=== PATIENT | male | born 1970 | race Caucasian/White ===

== ENCOUNTER 2018-07-10 08:20 | Emergency (ER) | payer BC, OTHER ==
[~2018-07-10 08:20] MED LIST: AZIT500T47 PO; CLON-303 *; CODE118S5 PO; DIA5 PO; HCTZ25 PO; IBU600 PO; IBUP-136 PO; KET10 PO; LID5T TOP; LOR5/325 PO; LOR7.5/325 PO; PAN40 PO; PER PO; PRO25 PO; ROBC PO; VENL75CA58 PO; WARF-12 PO; ZIPR60CA7 PO; [UNRECOGNIZED DRUG - CODE] IJ
[2018-07-10] MEDS ORDERED: NS(*) 0.9% 1000 ML BAG 1,000 ML IV ONE (08:23)
--- NOTE | 2018-07-10 08:36 | ER Report ---
History and Physical Time Seen By MD: 08:36 Hx. of Stated Complaint: PATIENT REPORTS LEFT SIDED CHEST PAIN THAT HE HAS BEEN DEALING WITH SINCE FEBRUARY. THIS MORNING HE BECAME NAUSEATED AND SHORT OF BREATH HPI/ROS 48-year-old male with no significant past medical history who presents to the emergency department with worsening stuttering chest pain for the past 2-3 months. The patient works as a rancher, and is normally very active throughout the day. He does not smoke. His states that for the past 2 weekend his ches t pain has become more frequent such that on the weekends he is not active at all. He does not recall what makes the pain better or worse. He does sometimes have the pain at rest. He denies any trauma. He has not taken anything for the pain. He does not take any medications at all. He denies shortness of breath. The pain is in his left lower chest and does not radiate. Allergies: Coded Allergies: No Known Drug Allergies (Verified , 02/27/15) Home Meds Reported Medications Ibuprofen (IBUPROFEN) 200 Mg Capsule, 2 CAP PO Q6H PRN for pain, CAPSULE 02/27/15 Reviewed Nurses Notes: Yes Old Medical Records Reviewed: Yes Hx Smoking: No Smoking Status: Never Smoker Exposure to Second Hand Smoke?: No Hx Substance Use Disorder: No Hx Alcohol Use: Yes (RARE) Constitutional Vital Sign - Last 24 Hours 07/10/18 07/10/18 07/10/18 07/10/18 08:20 08:23 08:25 08:26 Pulse ??? 63 Resp 20 B/P (MAP) 129/111 (117) 128/92 128/92 (104) Pulse Ox 98 O2 Delivery Room Air 07/10/18 07/10/18 07/10/18 07/10/18 08:40 08:50 09:00 09:20 Pulse 72 68 Resp 60 10 B/P (MAP) 122/94 (103) 115/87 (96) 123/95 (104) Pulse Ox 94 07/10/18 07/10/18 07/10/18 07/10/18 09:40 09:50 09:55 10:00 Pulse 70 68 Resp 18 16 B/P (MAP) 120/93 (102) 115/92 (100) 07/10/18 07/10/18 07/10/18 07/10/18 10:20 10:25 10:40 10:55 Pulse 64 57 Resp 19 0 B/P (MAP) 107/86 (93) 123/77 (92) 07/10/18 11:00 B/P (MAP) 102/90 (94) Physical Exam General Appearance: The patient is alert, has no immediate need for airway protection and no current signs of toxicity. Eyes: Pupils equal and round no injection. Respiratory: Chest is mildly TTP at the left lower chest, lungs are clear to auscultation. Cardiac: regular rate and rhythm Gastrointestinal: Abdomen is soft and non tender, no masses, bowel sounds norm al. Musculoskeletal: See chest exam Extremities have full range of motion and are non tender. Skin: No rashes or lesions. DIFFERENTIAL DIAGNOSIS: After history and physical exam differential diagnosis was considered for chest pain including but not limited to myocardial ischemia, pericarditis pulmonary embolus, chest wall pain, pleural inflammation and pulmonary infectious causes. Medical Decision Making Data Points Result Diagram: 07/10/18 0830 07/10/18 0830 Laboratory Hematology Test 07/10/18 08:30 07/10/18 11:52 Red Blood Count 5.68 M/uL (4.00-5.60) Mean Corpuscular Volume 87.0 fL (80.0-96.0) Mean Corpuscular Hemoglobin 30.5 pg (26.0-33.0) Mean Corpuscular Hemoglobin Concent 35.1 g/dL (32.0-36.0) Red Cell Distribution Width 12.9 % (11.5-14.5) Mean Platelet Volume 8.2 fL (7.2-11.1) Neutrophils (%) (Auto) 68.7 % (39.4-72.5) Lymphocytes (%) (Auto) 21.4 % (17.6-49.6) Monocytes (%) (Auto) 6.2 % (4.1-12.4) Eosinophils (%) (Auto) 3.1 % (0.4-6.7) Basophils (%) (Auto) 0.6 % (0.3-1.4) Nucleated RBC Relative Count (auto) 0.1 /100WBC Neutrophils # (Auto) 4.8 K/uL (2.0-7.4) Lymphocytes # (Auto) 1.5 K/uL (1.3-3.6) Monocytes # (Auto) 0.4 K/uL (0.3-1.0) Eosinophils # (Auto) 0.2 K/uL (0.0-0.5) Basophils # (Auto) 0.0 K/uL (0.0-0.1) Nucleated RBC Absolute Count (auto) 0.01 K/uL Sodium Level 139 mmol/L (137-145) Potassium Level 4.2 mmol/L (3.5-5.0) Chloride Level 100 mmol/L (98-107) Carbon Dioxide Level 28 mmol/L (22-30) Blood Urea Nitrogen 17 mg/dl (9-21) Creatinine 1.00 mg/dl (0.66-1.25) Glomerular Filtration Rate Calc > 60.0 Random Glucose 103 mg/dl (75-110) Calcium Level 9.1 mg/dl (8.4-10.2) Total Bilirubin 0.8 mg/dl (0.2-1.3) Aspartate Amino Transf (AST/SGOT) 56 U/L (0-35) Alanine Aminotransferase (ALT/SGPT) 112 U/L (0-56) Alkaline Phosphatase 81 U/L (0-126) Total Protein 7.4 g/dl (6.3-8.2) Albumin 4.3 g/dl (3.5-5.0) Troponin I < 0.012 ng/ml Chemistry Test 07/10/18 08:30 07/10/18 11:52 White Blood Count 7.1 k/uL (4.5-11.0) Red Blood Count 5.68 M/uL (4.00-5.60) Hemoglobin 17.4 g/dL (14.0-18.0) Hematocrit 49.5 % (42.0-52.0) Mean Corpuscular Volume 87.0 fL (80.0-96.0) Mean Corpuscular Hemoglobin 30.5 pg (26.0-33.0) Mean Corpuscular Hemoglobin Concent 35.1 g/dL (32.0-36.0) Red Cell Distribution Width 12.9 % (11.5-14.5) Platelet Count 299 K/uL (150-450) Mean Platelet Volume 8.2 fL (7.2-11.1) Neutrophils (%) (Auto) 68.7 % (39.4-72.5) Lymphocytes (%) (Auto) 21.4 % (17.6-49.6) Monocytes (%) (Auto) 6.2 % (4.1-12.4) Eosinophils (%) (Auto) 3.1 % (0.4-6.7) Basophils (%) (Auto) 0.6 % (0.3-1.4) Nucleated RBC Relative Count (auto) 0.1 /100WBC Neutrophils # (Auto) 4.8 K/uL (2.0-7.4) Lymphocytes # (Auto) 1.5 K/uL (1.3-3.6) Monocytes # (Auto) 0.4 K/uL (0.3-1.0) Eosinophils # (Auto) 0.2 K/uL (0.0-0.5) Basophils # (Auto) 0.0 K/uL (0.0-0.1) Nucleated RBC Absolute Count (auto) 0.01 K/uL Glomerular Filtration Rate Calc > 60.0 Calcium Level 9.1 mg/dl (8.4-10.2) Total Bilirubin 0.8 mg/dl (0.2-1.3) Aspartate Amino Transf (AST/SGOT) 56 U/L (0-35) Alanine Aminotransferase (ALT/SGPT) 112 U/L (0-56) Alkaline Phosphatase 81 U/L (0-126) Total Protein 7.4 g/dl (6.3-8.2) Albumin 4.3 g/dl (3.5-5.0) Troponin I < 0.012 ng/ml EKG/Imaging EKG Interpretation 12 lead EKG: Rhythm: normal sinus rhythm Bozrah: normal QRS: normal ST segments: normal ED Course/Re-evaluation ED Course 48-year-old male low risk for ACS. Stuttering chest pain for weeks to months and worse over the past 2 weeks. Now with some chest pain at rest. No PE risk factors. Normal EKG and 2 normal troponins drawn 3 hours apart with the 2nd one being 6 hours after the onset of chest pain today. I do not think this is acute ACS, but could represent unstable angina. I have set him up for a treadmill stress test tomorrow. The results will be sent to Dr. Dennis for further recs Decision to Disposition Date: Jul 10, 2018 Decision to Disposition Time: 12:54 Depart Departure Latest Vital Signs Vital Signs Date Time Temp Pulse Resp B/P (MAP) Pulse Ox O2 Delivery O2 Flow Rate FiO2 07/10/18 11:00 102/90 (94) 07/10/18 10:55 57 0 07/10/18 08:50 94 07/10/18 08:25 Room Air Impression: Primary Impression: Chest pain at rest Condition: Improved Disposition: HOME OR SELF-CARE Referrals: SASHA HUMPHRIES MD (PCP) Patient Instructions: Chest Pain (ED) Additional Instructions: Go to admitting tomorrow at 9:00 am for your stress test. Do not drink caffeine tomorrow morning JAREN RUBIO MD Jul 10, 2018 08:36
[2018-07-10 08:38] LABS: PLATELET COUNT, AUTOMATED 299 K/uL (150-450)
--- NOTE | 2018-07-10 08:54 | EKG ---
FACILITY: [facility] PATIENT NAME: MAHIN JUNIOR : [id number] MR: [id number] V: [id number] EXAM DATE: ORDERING PHYSICIAN: JAREN RUBIO TECHNOLOGIST: VICKY Clinton Reason : CARDIAC Blood Pressure : / mmHG Vent. Rate : 062 BPM Atrial Rate : 062 BPM P-R Int : 146 ms QRS Dur : 106 ms QT Int : 406 ms P-R-T Axes : 049 088 059 degrees QTc Int : 412 ms Normal sinus rhythm Normal ECG No previous ECGs available Confirmed by SASHA CRONIN ([id number]) on 07/10/2018 2:13:17 PM Referred By: Confirmed By:SASHA CRONIN
--- NOTE | 2018-07-10 09:15 | RADIOLOGY IMAGING REPORT ---
FACILITY: [facility] [place] PATIENT NAME: Reece Amador : 1970 MR: [id number] V: [id number] EXAM DATE: ORDERING PHYSICIAN: JAREN RUBIO TECHNOLOGIST: Location: [facility] [place] Patient: Reece Amador : 1970 Visit/Account:[id number] Date of Sevice: 07/10/2018 Exam type: CHEST PA AND LAT History: CHEST PAIN Comparison: October 16, 2014. Findings: The lungs are free of acute effusions, infiltrates or edema. There is no evidence of pneumothorax or pneumomediastinum. Cardiac silhouette is normal in size. The trachea is in midline. Visualized milli khari are unremarkable for age. IMPRESSION: 1. No acute cardiac pulmonary process is seen Report Dictated By: Linnea Vance MD at 07/10/2018 9:08 AM Report E-Signed By: Linnea Vance MD at 07/10/2018 9:11 AM WSN:[email or web address]
[2018-07-10] MEDS ORDERED: ASPIRIN 81 MG CHEW PO ONE ×2 (09:40→09:50)
[2018-07-10] MEDS ORDERED: KETOROLAC 30 MG/ML VIAL IVP ONE (09:40)
[2018-07-10 12:45] VITALS: BP 115/90
== END 2018-07-10 13:10 | disposition home or self-care (01) ==
LOC: ER 08:40
DX: R07.89 Other chest pain (principal)
CPT/HCPCS: 36415; 71046; 84484; 85025; 93005; 96374; 99284; J1885; 82040; 82247; 82310; 82374; 82435; 82565; 82947; 84075; 84132; 84155; 84295; 84450; 84460; 84520

== ENCOUNTER → 2018-07-11 | Outpatient (CLI) | payer BC ==
--- NOTE | 2018-07-11 17:00 | RT STRESS TEST REPORT ---
FACILITY: [facility] - [place] PATIENT NAME: MAHIN JUNIOR : [id number] MR: [id number] V: [id number] EXAM DATE: ORDERING PHYSICIAN: JAREN RUBIO TECHNOLOGIST: Abelardo Acquisition Time: 2018-07-11 08:20:23 Total Exercise Time: 00:11:58 Test Indications: Chest Pain / Discomfort Medications: Protocol: BRUCE2 Max HR: 155 BPM 90% of Pred: 172 BPM Max BP: 155/069 mmHG Max Work Load: 13.4 METS No ischemic changes to suggest ischemia Patient has minimal CP before the test patient has slight worsening of CP/pressure during recovery which returned to baseline in 5-7 minute s Impression No EKG changes to suggest ischemia symptoms equivocal, please correlate clinicaly Confirmed by LIZ TALAVERA ([id number]) on 07/11/2018 4:59:38 PM Referred By: SASHA HUMPHRIES Overread By: LIZ TALAVERA
== END ==
LOC: RESP 00:32
PROVIDERS: ATTEND Emergency Medicine
DX: R07.9 Chest pain, unspecified (principal)
CPT/HCPCS: 93017

== ENCOUNTER → 2018-09-27 | Outpatient (CLI) | payer BC ==
[2018-09-27 09:32] LABS: PLATELET COUNT, AUTOMATED 280 K/uL (150-450)
[2018-09-27 09:45] LABS: LDL CHOLESTEROL 166 mg/dl
== END ==
LOC: LAB 09:03
PROVIDERS: ATTEND Internal Medicine
DX: R07.9 Chest pain, unspecified (principal); R94.5 Abnormal results of liver function studies; R78.5 Finding of other psychotropic drug in blood
CPT/HCPCS: 36415; 80074; 81001; 82040; 82247; 82310; 82374; 82435; 82465; 82565; 82728; 82947; 83540; 83550; 83718; 84075; 84132; 84155; 84295; 84443; 84450; 84460; 84478; 84520; 85025; 86038

== ENCOUNTER → 2018-10-10 | Outpatient (CLI) | payer BC ==
--- NOTE | 2018-10-10 18:18 | RT STRESS TEST REPORT ---
FACILITY: [facility] PATIENT NAME: MAHIN JUNIOR : [id number] MR: [id number] V: [id number] EXAM DATE: ORDERING PHYSICIAN: LIZ TALAVERA TECHNOLOGIST: Acquisition Time: 2018-10-10 15:02:16 Total Exercise Time: 00:11:59 Test Indications: Medications: Protocol: RADHA 2 Max HR: 153 BPM 88% of Pred: 172 BPM Max BP: 166/101 mmHG Max Work Load: 13.4 METS He had no chest pain or ST depression. He had good heart rate recovery. Non-specific T flattening i nferiorly. Low risk. See nuclear images for details. Confirmed by SHELBI VIEIRA ([id number]) on 10/10/2018 6:17:32 PM Referred By: Overread By: SHELBI VIEIRA
--- NOTE | 2018-10-11 13:12 | RADIOLOGY IMAGING REPORT ---
FACILITY: [facility] PATIENT NAME: Reece Amador : 1970 MR: [id number] V: [id number] EXAM DATE: ORDERING PHYSICIAN: LIZ TALAVERA TECHNOLOGIST: Location: [facility] Patient: Reece Amador : 1970 Visit/Account:[id number] Date of Sevice: 10/10/2018 EXAMINATION: Single Isotope SPECT Imaging with Exercise and Gated SPECT Imaging DATE OF EXAMINATION: 10/10/2018 DATE OF INTERPRETATION: 10/11/2018 REQUESTING PHYSICIAN: LIZ TALAVERA INDICATION: The patient is a 48-year-old male evaluated for chest pain. PROCEDURE: After informed consent the patient received an intravenous injection of 12.8 mCi of Tc-9 9m sestamibi followed at the appropriate time interval by rest imaging. The patient then exercised a ccording to the standard Yadiel protocol for 12 minutes achieving 13 METS. Resting heart rate was 81 bpm with a peak heart rate of 153 bpm which is 88 % of maximal predicted heart rate for age. Blood pressure at rest was 127 / 95; blood pressure during exercise was 166 / 101. There was no chest pain during exercise. Exercise was discontinued because of fatigue. Baseline EKG demonstrates sinus rhy thm. There were no EKG changes of ischemia at peak exercise. Approximately one minute and 30 second s prior to the termination of exercise, the patient received an intravenous injection of 30.2 mCi of Tc-99m sestamibi followed by stress imaging. RAW DATA: Examination of the summed raw data revealed a good quality study. MYOCARDIAL PERFUSION: The tomographic images demonstrate normal myocardial perfusion with no evidenc e of infarct or ischemia. There is no TID. GATED IMAGES: The gated images demonstrate hyperdynamic ejection fraction >70% with normal wall jose on and thickening. IMPRESSION: 1. Normal exercise ECG 2. Normal myocardial perfusion scan. 3. Hyperdynamic LV systolic function; LVEF >70%. 4. Based on the results of this exam, the patient appears to be at low risk for future cardiovascular events. Report Dictated By: Yrn Calhoun at 10/11/2018 1:04 PM Report E-Signed By: Yrn Calhoun at 10/11/2018 1:07 PM WSN:[id number]
== END ==
LOC: NUC 00:24
PROVIDERS: ATTEND Internal Medicine
DX: R07.9 Chest pain, unspecified (principal); R94.5 Abnormal results of liver function studies; E78.5 Hyperlipidemia, unspecified
CPT/HCPCS: 78452; 93017; A9500

== ENCOUNTER → 2018-10-14 | Outpatient (CLI) | payer BC ==
--- NOTE | 2018-10-14 12:52 | RADIOLOGY IMAGING REPORT ---
FACILITY: [facility] [place] PATIENT NAME: Reece Amador : 1970 MR: [id number] V: [id number] EXAM DATE: ORDERING PHYSICIAN: LIZ TALAVERA TECHNOLOGIST: Location: [facility] - [place] Patient: Reece Amador : 1970 Visit/Account:[id number] Date of Sevice: 10/14/2018 ORBITS FOREIGN BODY 1 VIEW HISTORY: Pre-MRI. COMPARISON: None. FINDINGS: Bones are intact. No metallic object overlies the orbits. No acute bony finding. IMPRESSION: No metal overlying the orbits. Report Dictated By: Magdy Chicas MD at 10/14/2018 12:48 PM Report E-Signed By: Magdy Chicas MD at 10/14/2018 12:48 PM WSN:[email or web address]
--- NOTE | 2018-10-14 14:42 | RADIOLOGY IMAGING REPORT ---
FACILITY: [facility] PATIENT NAME: Reece Amador : 1970 MR: [id number] V: [id number] EXAM DATE: ORDERING PHYSICIAN: LIZ TALAVERA TECHNOLOGIST: [facility] Patient: Reece Amador : 1970 Visit/Account:[id number] Date of Sevice: 10/14/2018 ABDOMEN W/O CONTRAST HISTORY: nodules on liver by ultrasound ADDITIONAL HISTORY: None. TECHNIQUE: Multiplanar multisequence magnetic resonance imaging of the abdomen without intravenous c ontrast. CONTRAST: None. COMPARISON: Ultrasound 10/02/2018 FINDINGS: Liver: There are 3 liver lesions measuring up to 2.8 x 1.9 cm which exhibit high signal on T2-weighte d images. Enhancement pattern cannot be determined without contrast. All 3 lesions exhibit T2 shine t hrough without restricted diffusion. Gallbladder and bile ducts: Negative. The common bile duct measures 3 mm. Spleen: Negative. Adrenal glands: Negative. Pancreas: Negative. Kidneys: Negative. Vessels: Normal Bowel/peritoneum/mesentery: Negative Lymph nodes: Negative Bones/soft tissues: Negative Visualized lung bases: Negative Visualized pelvis: Negative Other findings: None significant IMPRESSION: 1. There are 3 liver lesions measuring up to 2.8 x 1.9 cm which exhibit high signal on T2-weighted im ages without restricted diffusion. These lesions could represent hemangiomas however enhancement venus arvin cannot be determined without contrast. Recommend follow-up examination in 6 months with and witho ut contrast for further evaluation. Report Dictated By: Hai Grimaldo MD at 10/14/2018 2:30 PM Report E-Signed By: Hai Grimaldo MD at 10/14/2018 2:37 PM WSN:[email or web address]
== END ==
LOC: MRI 10-07 06:47
PROVIDERS: ATTEND Internal Medicine
DX: K76.89 Other specified diseases of liver (principal)
CPT/HCPCS: 70030; 74181

== ENCOUNTER → 2018-12-11 | Outpatient (CLI) | payer BC ==
[~2018-12-11] MED LIST changes: +ROS10 PO
[2018-12-11 08:35] LABS: LDL CHOLESTEROL 62 mg/dl
== END ==
LOC: LAB 07:54
PROVIDERS: ATTEND Internal Medicine
DX: R94.5 Abnormal results of liver function studies (principal); E78.5 Hyperlipidemia, unspecified
CPT/HCPCS: 36415; 82040; 82247; 82310; 82374; 82435; 82465; 82565; 82947; 83718; 84075; 84132; 84155; 84295; 84450; 84460; 84478; 84520

== ENCOUNTER → 2019-01-10 | Outpatient (CLI) | payer BC ==
[~2019-01-10] MED LIST changes: +GADOBENATE 529MG/1ML 15ML VIAL IVP ONE; +NS 0.9% 25 ML BAG 25 ML ONE; -ROS10 PO; +ROSU10TA PO
[2019-01-10 08:32] LABS: LDL CHOLESTEROL 142 mg/dl
--- NOTE | 2019-01-10 10:51 | RADIOLOGY IMAGING REPORT ---
FACILITY: [facility] - [place] PATIENT NAME: Reece Amador : 1970 MR: [id number] V: [id number] EXAM DATE: ORDERING PHYSICIAN: LIZ TALAVERA TECHNOLOGIST: Location: [facility] - [place] Patient: Reece Amador : 1970 Visit/Account:[id number] Date of Sevice: 01/10/2019 EXAMINATION: MRI abdomen without IV contrast MRI abdomen with IV contrast 01/10/2019 7:39 AM HISTORY: liver hemangioma TECHNIQUE: Multiplanar multisequence imaging was done before and after intravenous contrast administr ation. Contrast: 15 mL of IV MultiHance COMPARISON STUDIES: MR 10/14/[address] evaluations 12/04/2012 and 08/25/2008 FINDINGS: Liver / biliary: 3 liver lesions are stable with the largest in the right lobe measuring 2.8 x 1.7 cm . These show diminished T1 signal, increased T2 and diffusion-weighted signal, and postcontrast enha ncement pattern of benign hemangiomas. No concerning new liver lesion evident. No acute biliary fin ding. Pancreas: negative Spleen: Incidental small accessory splenule. Adrenal glands: negative Kidneys / retroperitoneum: negative Bowel / peritoneum / mesenteries: negative Vessels: negative Musculoskeletal / Body wall: negative Lymph node assessment: negative Lower chest: negative IMPRESSION: 1. 3 liver masses have imaging features consistent with hemangiomas and are stable by size comparing to CT 08/25/2008. 2. No acute finding otherwise. Report Dictated By: Drake Mcmahan MD at 01/10/2019 10:31 AM Report E-Signed By: Drake Mcmahan MD at 01/10/2019 10:48 AM WSN:[email or web address]
== END ==
LOC: MRI 01:29
PROVIDERS: ATTEND Internal Medicine
DX: D18.03 Hemangioma of intra-abdominal structures (principal); E78.5 Hyperlipidemia, unspecified; K76.89 Other specified diseases of liver; R94.5 Abnormal results of liver function studies
CPT/HCPCS: 36415; 74183; 81256; 83516; 85651; 86140; A9577; 82040; 82247; 82310; 82374; 82435; 82465; 82565; 82947; 83718; 84075; 84132; 84155; 84295; 84450; 84460; 84478; 84520

== ENCOUNTER 2019-01-25 11:50 | Emergency (ER) | payer BC ==
[~2019-01-25 11:50] MED LIST changes: -GADOBENATE 529MG/1ML 15ML VIAL IVP ONE; -NS 0.9% 25 ML BAG 25 ML ONE
[2019-01-25] MEDS ORDERED: NS(*) 0.9% 1000 ML BAG 1,000 ML IV ONE (12:19)
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
[2019-01-25 12:29] LABS: PLATELET COUNT, AUTOMATED 323 K/uL (150-450)
--- NOTE | 2019-01-25 12:44 | RADIOLOGY IMAGING REPORT ---
FACILITY: PATIENT NAME: Reece Amador : 1970 MR: [id number] V: [id number] EXAM DATE: ORDERING PHYSICIAN: OFELIA CHERRY TECHNOLOGIST: Location: [facility] Patient: Reece Amador : 1970 Visit/Account:[id number] Date of Sevice: 01/25/[address] scan without contrast. HISTORY: Altered mental status, headache. COMPARISON: None. [address] images were obtained of the brain. No intravenous contrast. One of the following dose optimization techniques was utilized in the performance of this exam: Automated exposure control ; adjustment of the mA and/or kV according to the patient's size; or use of an iterative reconstruct ion technique. Specific details can be referenced in the facility's radiology CT exam operational po licy. FINDINGS: Cerebral, cerebellar, and brainstem volumes are normal for age. The ventricular system is normal in s ize and midline in position. No mass, hemorrhage, or acute stroke are identified. No abnormal extra a xial fluid collections. The dural sinuses are slightly dense but within normal limits. The right supr aclinoid carotid artery is minimally calcified and upper limits of normal in size at its junction wit h the right middle cerebral artery. The calvarium is intact. Jones-white differentiation is unremarkab le. Minimal chronic mucosal thickening is present in the ethmoid sinuses and right maxillary sinus. T he included portions of the paranasal sinuses are unremarkable. The base of the brain is slightly obs cured by bony artifacts. IMPRESSION: Essentially negative unenhanced brain. Report Dictated By: Carlos Tinoco MD at 01/25/2019 12:34 PM Report E-Signed By: Carlos Tinoco MD at 01/25/2019 12:40 PM WSN:[id number]
[2019-01-25] MEDS ORDERED: RANI-366 PO (12:49)
--- NOTE | 2019-01-25 14:12 | EKG ---
[place] [facility] [place] MAHIN JUNIOR : [id number] MR: [id number] V: [id number] EXAM DATE: ORDERING PHYSICIAN: OFELIA CHERRY TECHNOLOGIST: INDERJIT Test Reason : SPEECH IMPAIRED Blood Pressure : / mmHG Vent. Rate : 057 BPM Atrial Rate : 057 BPM P-R Int : 158 ms QRS Dur : 108 ms QT Int : 404 ms P-R-T Axes : -27 147 000 degrees QTc Int : 393 ms Sinus bradycardia Otherwise normal ECG When compared with ECG of 10-JUL-2018 08:26, Nonspecific T wave abnormality now evident in Inferior leads Confirmed by SHELBI VIEIRA ([id number]) on 01/25/2019 4:32:12 PM Referred By: JOANNE Confirmed By:SHELBI VIEIRA
[2019-01-25 14:44] VITALS: BP 125/88
--- NOTE | 2019-01-25 14:46 | RADIOLOGY IMAGING REPORT ---
[place] [facility] [place] NAME: Reece Amador : 1970 MR: [id number] V: [id number] EXAM DATE: [id number] ORDERING PHYSICIAN: OFELIA CHERRY TECHNOLOGIST: Location: [facility] - [place] Patient: Reece Amador : 1970 Visit/Account:[id number] Date of Sevice: 01/25/2019 EXAMINATION: Brain MR angiogram HISTORY: Headache, right-sided numbness COMPARISON: Head CT January 25, 2019 TECHNIQUE: 8D-ybfg-nl-flight angiography was performed through the brain with 3D reformations. FINDINGS: Internal carotids: Normal. Anterior/Posterior communicating arteries: Normal. Anterior cerebral arteries: Normal. Middle cerebral arteries: Normal. Posterior cerebral arteries: Normal. Vertebrobasilar: The left vertebral artery terminates in PICA, otherwise unremarkable. PICA / AICA / SCA / GRINDER HARDBOARD: Normal. Non-angiographic Findings: None significant. IMPRESSION: Normal brain MR angiogram. Report Dictated By: Geoffrey Willoughby MD at 01/25/2019 2:39 PM Report E-Signed By: Geoffrey Willoughby MD at 01/25/2019 2:43 PM WSN:[id number]
--- NOTE | 2019-01-25 14:59 | RADIOLOGY IMAGING REPORT ---
FACILITY: [facility] PATIENT NAME: Reece Amador : 1970 MR: [id number] V: [id number] EXAM DATE: [id number] ORDERING PHYSICIAN: OFELIA CHERRY TECHNOLOGIST: Location: [facility] [place] Patient: Reece Amador : 1970 Visit/Account:[id number] Date of Sevice: 01/25/2019 Examination: MR brain without contrast History: Headache Comparison: Head CT same day Technique: Multiplane MR imaging was performed through the brain without contrast. Findings: Diffusion: None Ventricles: Normal Midline shift: None Extraaxial fluid: None. Midline craniocervical structures: Normal Parenchyma: Less than 5 scattered white matter high signal foci side largest in the right frontal rhonda p white matter measuring 9 mm, axial flair image 18. Vascular flow voids: Normal Orbits and paranasal sinuses: Minimal right maxillary sinus mucosal thickening. Mucosal thickening wi thin a posterior right ethmoid air cell. Other: No significant additional finding. Impression: 1. No acute intracranial abnormality. 2. Less than 5 scattered nonspecific white matter high signal foci in keeping with residua of prior m icroischemia or inflammation. These do not have the characteristic distribution often seen with MS wh ich is felt unlikely. 3. Otherwise unremarkable brain MR. Report Dictated By: Geoffrey Willoughby MD at 01/25/2019 2:51 PM Report E-Signed By: Geoffrey Willoughby MD at 01/25/2019 2:56 PM WSN:[id number]
== END 2019-01-25 15:33 | disposition home or self-care (01) ==
LOC: ER 12:20
DX: G43.909 Migraine, unspecified, not intractable, without status migrainosus (principal); R00.1 Bradycardia, unspecified
CPT/HCPCS: 36415; 70450; 70544; 70551; 81001; 82140; 84484; 85025; 85651; 93005; 96360; 99284; J7030; 82040; 82247; 82310; 82374; 82435; 82565; 82947; 84075; 84132; 84155; 84295; 84450; 84460; 84520

== ENCOUNTER → 2019-02-03 | Outpatient (CLI) | payer BC ==
[~2019-02-03] MED LIST changes: +RANI-366 PO
== END ==
LOC: LAB 13:13
PROVIDERS: ATTEND Internal Medicine
DX: R94.5 Abnormal results of liver function studies (principal)
CPT/HCPCS: 36415; 82103; 82390; 82784; 83516; 83540; 83550; 86803; 87340

== ENCOUNTER → 2019-03-02 | Outpatient (CLI) | payer BC | LOC: LAB 09:19 | PROVIDERS: ATTEND Internal Medicine | DX: R94.5 Abnormal results of liver function studies (principal) | CPT/HCPCS: 36415; 82728; 83540; 83550 ==

== ENCOUNTER → 2019-04-14 | Outpatient (CLI) | payer BC ==
[~2019-04-14] MED LIST changes: -RANI-366 PO; +RANI-54 PO
[2019-04-14 12:06] LABS: LDL CHOLESTEROL 163 mg/dl
== END ==
LOC: LAB 10:31
PROVIDERS: ATTEND Internal Medicine
DX: R94.5 Abnormal results of liver function studies (principal); E78.5 Hyperlipidemia, unspecified; E83.119 Hemochromatosis, unspecified
CPT/HCPCS: 36415; 82040; 82247; 82310; 82374; 82435; 82465; 82565; 82947; 83540; 83550; 83718; 84075; 84132; 84155; 84295; 84450; 84460; 84478; 84520

== ENCOUNTER → 2019-04-14 | Outpatient (CLI) | payer BC ==
[~2019-04-14] MED LIST changes: +GADOBENATE 529MG/1ML 15ML VIAL IVP ONE; +NS(*) 0.9% 50 ML BAG 50 ML ONE
--- NOTE | 2019-04-14 10:23 | RADIOLOGY IMAGING REPORT ---
FACILITY: [facility] - [place] PATIENT NAME: Reece Amador : 1970 MR: [id number] V: [id number] EXAM DATE: ORDERING PHYSICIAN: SILVANA CONTRERAS TECHNOLOGIST: Location: [facility] Patient: Reece Amador : 1970 Visit/Account:[id number] Date of Sevice: 04/14/2019 EXAMINATION: MRA of the neck without IV contrast MRA of the neck with IV contrast HISTORY: Migraine, transient speech disturbance COMPARISON: None. TECHNIQUE: Pre and postcontrast neck MR imaging I am acquisitions obtained. 15 mL MultiHance injecte d. 3-D reformations generated. Stenosis of the internal carotid arteries calculated using NASCET cr iteria. FINDINGS: Angiographic Findings: Aortic arch / great vessels: Conventional anatomy, normal. Right carotid vasculature: Normal. Left carotid vasculature: Normal. Vertebral arteries: Normal. Visible intracranial vasculature: Normal. Non-angiographic Findings: None significant. IMPRESSION: Normal neck MR angiogram. Report Dictated By: Geoffrey Willoughby MD at 04/14/2019 10:11 AM Report E-Signed By: Geoffrey Willoughby MD at 04/14/2019 10:17 AM WSN:[id number]
== END ==
LOC: MRI 01:11
PROVIDERS: ATTEND Psychiatry & Neurology Neurology
DX: R47.9 Unspecified speech disturbances (principal); G43.109 Migraine with aura, not intractable, without status migrainosus
CPT/HCPCS: 70549; A9577; J7050

== ENCOUNTER 2019-04-25 08:15 | Outpatient (RCR) | payer BC ==
[2019-03-21 08:59] LABS: PLATELET COUNT, AUTOMATED 283 K/uL (150-450)
[2019-03-21 10:33] VITALS: BP 121/84
[2019-03-21 10:59] VITALS: BP 111/78
[2019-03-28 08:50] LABS: PLATELET COUNT, AUTOMATED 311 K/uL (150-450)
[2019-03-28 08:57] VITALS: BP 118/83
[2019-03-28 10:56] VITALS: BP 127/91
[2019-04-04 08:40] VITALS: BP 115/83
[2019-04-04 08:43] LABS: PLATELET COUNT, AUTOMATED 327 K/uL (150-450)
[2019-04-04 10:49] VITALS: BP 110/79
[2019-04-11 08:35] LABS: PLATELET COUNT, AUTOMATED 364 K/uL (150-450)
[2019-04-11 09:46] VITALS: BP 123/81
[~2019-04-25 08:15] MED LIST changes: -GADOBENATE 529MG/1ML 15ML VIAL IVP ONE; -NS(*) 0.9% 50 ML BAG 50 ML ONE
== END 2019-05-07 13:24 | disposition home or self-care (01) ==
LOC: SPU 08:15
PROVIDERS: ATTEND Internal Medicine
DX: R94.5 Abnormal results of liver function studies (principal); R79.89 Other specified abnormal findings of blood chemistry; E83.118 Other hemochromatosis; E83.19 Other disorders of iron metabolism
CPT/HCPCS: 36415; 82728; 85014; 85025; 99195